=== PATIENT | male | born 1995 | race Caucasian/White ===

== ENCOUNTER → 2016-11-14 | Outpatient (CLI) | payer OTHER ==
--- NOTE | 2016-11-14 13:05 | DIAGNOSTIC IMAGING REPORT ---
LEFT FEMUR 5 VIEWS CLINICAL HISTORY: Left hamstrings injury. FINDINGS: AP, lateral, frog-leg, internally rotated, and externally rotated views of the left femur are compared to study dated 08/09/2016. The skeletal structures are well mineralized. There is no radiographic evidence of left femoral fracture. The imaged left hemipelvis appears intact. The hip and knee joints are grossly maintained. A 2.7 cm linear calcification is again seen within the left hamstrings musculature. This is unchanged from previous. IMPRESSION: 1. No acute bony abnormality is seen in the left femur. 2. A linear calcification in the left hamstrings musculature is unchanged and likely represents the sequelae of remote trauma. Electronically signed by: Jaciel Chawla M.D. 11/14/2016 1:03 PM Dictated Date/Time: 11/14/2016 1:00 PM
== END | disposition home or self-care (01) ==
LOC: C.RDSM 15:32
PROVIDERS: ATTEND Internal Medicine
DX: S76.302A Unspecified injury of muscle, fascia and tendon of the posterior muscle group at thigh level, left thigh, initial encounter (principal); X58.XXXA Exposure to other specified factors, initial encounter; M65.252 Calcific tendinitis, left thigh